=== PATIENT | female | born 1935 | race Caucasian/White ===

== ENCOUNTER 2017-04-03 23:41 | Emergency (ER) | payer OTHER ==
[2017-04-03 23:49] VITALS: BP 188/85; BMI 20.1
[2017-04-03] MEDS ORDERED: NS 1000 ML 1,000 ML ONE (23:52)
[2017-04-03] MEDS ORDERED: ZOFRAN INJ 4 MG VIAL ONE (23:52)
[2017-04-03] MEDS ORDERED: NS 1000 ML 1,000 ML IV ONE (23:53)
[2017-04-03] MEDS ORDERED: ZOFRAN INJ 4 MG VIAL IVP ONE (23:56)
[2017-04-04] MEDS ORDERED: BENTYL CAP 10 MG PO ONE ×2 (00:12→00:21)
[2017-04-04] MEDS ORDERED: MORPHINE SULFATE INJ 2 MG INJ IVP ONE ×2 (00:13→01:05)
--- NOTE | 2017-04-04 00:14 | DR.GENAD ---
HPI - PCP Primary Care Physician: NFD - Complaint/Symptoms Chief Complaint:: PT C/O N/V ABD PAIN FOR SEVERAL DAYS STARTED ON MY LT SIDE BUT NOW ITS IN MY STOMACH PT POINTS TO LT LOWER QUAD - Source History Provided: Patient - Mode of Arrival Mode of Arrival: Ambulatory - Timing Onset of Chief Complaint: 03/30/17 PMH - PMH Past Medical History: Yes Past Medical History: Hypothyroidism Past Medical History Comment: KIDNEY STONES Past Surgical History: Yes Surgical History: Appendectomy, Cholecystectomy - Family History History of Family Medical Conditions: No - Social History Does any household member use tobacco: No Alcohol Use: None Do you use any recreational Drugs:: No Lives With: Family Lives Where: Home - infectious screening In the last 2 months have you had wt loss of >10#?: NO Have you had fever, night sweats or hemotysis?: No Have you traveled outside the country in the last 6 months?: No Isolation: Standard PE - Vital Signs Vitals: Temperature 98.2 F Pulse Rate 80 Respiratory Rate 18 Blood Pressure 188/85 O2 Sat by Pulse Oximetry 97 ROR - Labs Reviewed Laboratory Results Reviewed?: Yes (UA: 3+ leuk;10-15 wbc) Result Diagrams: 04/04/17 00:26 04/04/17 00:26 Laboratory: WBC 10.1 X10^3/uL (3.6-10.0) H 04/04/17 00:26 RBC 4.43 X10^6/uL (3.5-5.4) 04/04/17 00:26 Hgb 13.5 g/dL (12.0-16.0) 04/04/17 00:26 Hct 38.9 % (36.0-47.0) 04/04/17 00:26 MCV 87.8 fL (80.0-100.0) 04/04/17 00:26 MCH 30.6 pg (27.0-34.0) 04/04/17 00:26 MCHC 34.8 g/dL (33.0-35.0) 04/04/17 00:26 RDW 13.2 % (11.6-16.5) 04/04/17 00:26 Plt Count 239 X10^3/uL (150.0-450.0) 04/04/17 00:26 MPV 6.4 fL (7.4-11.0) L 04/04/17 00: Neut % 81.8 % (42.0-75.0) H 04/04/17 00: Lymph % 9.3 % (21.0-51.0) L 04/04/17 00:26 Steele % 8.0 % (0.0-13.0) 04/04/17 00: Eos % 0.4 % (0.9-2.9) L 04/04/17 00: Baso % 0.5 % (0.2-1.0) 04/04/17 00: Neut # 8.2 x10^3/uL (2.2-4.8) H 04/04/17 00: Lymph # 0.9 X10^3/uL (1.3-2.9) L 04/04/17 00:26 Steele # 0.8 x10^3/uL (0.3-0.8) 04/04/17 00: Eos # 0.0 x10^3/uL (0.0-0.2) 04/04/17 00: Baso # 0.1 X10^3/uL (0.0-0.1) 04/04/17 00:26 Absolute Nucleated RBC 0.0 /100WBC 04/04/17 00:26 Sodium 136 mmol/L (136-145) 04/04/17 00:26 Corrected Sodium 137 mmol/L (136-145) 04/04/17 00:26 Potassium 3.8 mmol/L (3.5-5.1) 04/04/17 00: Chloride 101 mmol/L (98-107) 04/04/17 00:26 Carbon Dioxide 27.8 mmol/L (21-32) 04/04/17 00:26 BUN 12 mg/dL (7-18) 04/04/17 00:26 Creatinine 0.96 mg/dL (0.55-1.02) 04/04/17 00:26 Est GFR (MDRD) Af Amer > 60 (>60) 04/04/17 00:26 Est GFR (MDRD) Non-Af 59 (>60) 04/04/17 00:26 Glucose 152 mg/dL (65-99) H 04/04/17 00:26 Calcium 8.8 mg/dL (8.5-10.1) 04/04/17 00:26 Corrected Calcium TNP 04/04/17 00:26 Total Bilirubin 0.50 mg/dL (0.2-1.0) 04/04/17 00:26 AST 20 Units/L (15-37) 04/04/17 00:26 ALT 21 Units/L (12-78) 04/04/17 00:26 Alkaline Phosphatase 68 Units/L (46-116) 04/04/17 00:26 C-Reactive Protein 0.80 mg/L (0-3.0) 04/04/17 00:26 Total Protein 6.5 g/dL (6.4-8.2) 04/04/17 00:26 Albumin 3.6 g/dL (3.4-5.0) 04/04/17 00:26 Globulin 2.9 g/dL (2.5-4.5) 04/04/17 00:26 Albumin/Globulin Ratio 1.2 Ratio (1.1-2.1) 04/04/17 00:26 Amylase 35 Units/L (25-115) 04/04/17 00:26 Lipase 77 Units/L (73-393) 04/04/17 00:26 Specimen Type Clean catch urine 04/04/17 01:32 Urine Color Yellow (YELLOW) 04/04/17 01:32 Urine Appearance Slightly hazy (CLEAR) 04/04/17 01:32 Urine pH 8.0 (5.0 - 8.0) 04/04/17 01:32 Ur Specific Danese 1.015 (1.000-1.030) 04/04/17 01:32 Urine Protein 1+ (NEGATIVE) 04/04/17 01:32 Urine Glucose (UA) Negative (NEGATIVE) 04/04/17 01:32 Urine Ketones Negative (NEGATIVE) 04/04/17 01:32 Urine Occult Blood 3+ (NEGATIVE) 04/04/17 01:32 Urine Nitrite Negative (NEGATIVE) 04/04/17 01:32 Urine Bilirubin Negative (NEGATIVE) 04/04/17 01:32 Urine Urobilinogen Normal (NORMAL) 04/04/17 01:32 Ur Leukocyte Esterase 3+ (NEGATIVE) 04/04/17 01:32 Urine RBC 5-7 /HPF (NEGATIVE) 04/04/17 01:32 Urine WBC 10-15 /HPF (NEGATIVE) 04/04/17 01:32 Ur Squamous Epith Cells Rare /HPF (NEGATIVE) 04/04/17 01:32 Urine Bacteria 1+ /HPF (NEGATIVE) 04/04/17 01:32 Ur Culture Indicated? Yes/culture set up 04/04/17 01:32 H. pylori IgG Antibody Negative (NEGATIVE) 04/04/17 00:26 - XRAY XRAY Interpreted by: Radiologist (Lumbar: There is agrade 1 anterolisthesis of L4. There is no acute fracture identified within the lumbar spine. There is mild spondylosis at L4-5 and L5-S1 with moderate L4-5 facet arthropathy. No definite spondylosis identified. SI joints are intact. Impression: Grade I anterolisthesis of L4 with spondylosis and facet arthropathy at L4-5. 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
[2017-04-04 00:36] LABS: BASOPHILS # (AUTO) 0.1 X10^3/uL (0.0-0.1); BASOPHILS % (AUTO) 0.5 % (0.2-1.0); EOSINOPHILS % (AUTO) 0.4 % (0.9-2.9); HEMATOCRIT 38.9 % (36.0-47.0); HEMOGLOBIN 13.5 g/dL (12.0-16.0); LYMPHOCYTES # (AUTO) 0.9 X10^3/uL (1.3-2.9); LYMPHOCYTES % (AUTO) 9.3 % (21.0-51.0); MEAN CORPUSCULAR HEMOGLOBIN 30.6 pg (27.0-34.0); MEAN CORPUSCULAR HGB CONC 34.8 g/dL (33.0-35.0); MEAN CORPUSCULAR VOLUME 87.8 fL (80.0-100.0); MEAN PLATELET VOLUME 6.4 fL (7.4-11.0); MONOCYTES # (AUTO) 0.8 x10^3/uL (0.3-0.8); NEUTROPHILS # (AUTO) 8.2 x10^3/uL (2.2-4.8); NEUTROPHILS % (AUTO) 81.8 % (42.0-75.0); PLATELET COUNT 239 X10^3/uL (150.0-450.0); RED BLOOD COUNT 4.43 X10^6/uL (3.5-5.4); RED CELL DISTRIBUTION WIDTH 13.2 % (11.6-16.5); WHITE BLOOD COUNT 10.1 X10^3/uL (3.6-10.0)
[2017-04-04 00:44] LABS: ALANINE AMINOTRANSFERASE 21 Units/L (12-78); ALBUMIN 3.6 g/dL (3.4-5.0); ALKALINE PHOSPHATASE 68 Units/L (46-116); AMYLASE 35 Units/L (25-115); ASPARTATE AMINO TRANSFERASE 20 Units/L (15-37); BLOOD UREA NITROGEN 12 mg/dL (7-18); CALCIUM 8.8 mg/dL (8.5-10.1); CARBON DIOXIDE 27.8 mmol/L (21-32); CHLORIDE 101 mmol/L (98-107); COR NA(FOR HYPERGLY) 137 mmol/L (136-145); CREATININE 0.96 mg/dL (0.55-1.02); LIPASE 77 Units/L (73-393); SODIUM 136 mmol/L (136-145); TOTAL PROTEIN 6.5 g/dL (6.4-8.2); eGFR BLACK RACES > 60 (>60); eGFR NON BLACK RACES 59 (>60)
[2017-04-04] MEDS ORDERED: MORPHINE SULFATE INJ 2 MG INJ ONE (01:00)
--- NOTE | 2017-04-04 01:43 | RAD ---
Three views of the lumbar spine Indication: Back pain Findings: There is a grade 1 anterolisthesis of L4. There is no acute fracture identified within the lumbar spine. There is mild spondylosis at L4-5 and L5-S1 with moderate L4-5 facet arthropathy. No de finite spondylolysis is identified. SI joints are intact. Impression: Grade 1 anterolisthesis of L4 with spondylosis and facet arthropathy at L4-5. There is no acute fracture for spondylolysis . Reported By:
[2017-04-04 01:44] LABS: BILIRUBIN,URINE NEGATIVE (NEGATIVE); BLOOD/HEMOGLOBIN,URINE 3+ (NEGATIVE); GLUCOSE, URINE NEGATIVE (NEGATIVE); KETONES,URINE NEGATIVE (NEGATIVE); LEUKOCYTE ESTERASE ,URINE 3+ (NEGATIVE); NITRITES,URINE NEGATIVE (NEGATIVE); PROTEIN,URINE 1+ (NEGATIVE); UROBILINOGEN,URINE NORMAL (NORMAL)
[2017-04-04 01:46] LABS: APPEARANCE,URINE SLIGHTLY HAZY (CLEAR); COLOR,URINE YELLOW (YELLOW)
[2017-04-04 01:48] LABS: BACTERIA,URINE 1+ /HPF (NEGATIVE); SQUAMOUS EPITHELIAL CELL,UR RARE /HPF (NEGATIVE)
[2017-04-04] MEDS ORDERED: ROCEPHIN 1 GM IV PREMIX * OUT OF STOCK 50 ML IV ONE (02:00)
[2017-04-04] MEDS ORDERED: ROCEPHIN VIAL 1 GM 1 GM in NS 50 ML IV + SPIKE MINIBAG* 50 ML IV SCH (02:00)
[2017-04-04] MEDS ORDERED: MORPHINE SULFATE INJ 4 MG ONE (02:05)
[2017-04-04] MEDS ORDERED: MORPHINE SULFATE INJ 4 MG IVP PRN (02:07)
== END 2017-04-04 02:30 | disposition home or self-care (01) ==
LOC: ER 23:56
DX: M47.816 Spondylosis without myelopathy or radiculopathy, lumbar region (principal); N30.00 Acute cystitis without hematuria
CPT/HCPCS: 36415; 72100; 80053; 81001; 82150; 83690; 85025; 86140; 86677; 87086; 96365; 96367; 96374; 96375; 99283; A4222; J0696; J2270; J2405